=== PATIENT | male | born 1995 | race Two or more races ===

== ENCOUNTER 2024-11-17 19:53 | Inpatient (IN) | payer MEDICAID ==
[~2024-11-17] VITALS: Ht 172.7 cm; Wt 101.2 kg
[2024-11-17 21:36] LABS: GLUCOMETER DEV NAME(LOC) POC.BV; POC SARS-COV2 AG, FIA NEGATIVE (NEGATIVE)
[2024-11-17 22:30] VITALS: BP 139/93; PULSE 86; RESP 18; TEMP 98.2
[2024-11-17 22:51] LABS: GLUCOMETER DEV NAME(LOC) BV3S.2; GLUCOSE,POINT OF CARE 172 MG/DL (70-110)
[2024-11-17] MEDS: ZOLPIDEM TARTRATE 10 MG TABLET PO PRN (23:01)
[2024-11-18 08:41] VITALS: BP 127/88; PULSE 93; RESP 19; TEMP 97.7; O2SAT 97
[2024-11-18 09:12] LABS: PLATELET COUNT (AUTO) 170 K/uL (150-450); RED BLOOD CELL COUNT(AUTO) 4.76 MIL/uL (4.50-5.90); RED CELL DISTRIBUTION WIDTH 14.5 % (11.5-14.5); WHITE BLOOD COUNT (AUTO) 8.4 K/uL (4.5-11.0)
[2024-11-18] MEDS ORDERED: BACITRACIN 28 GM OINTMENT TP PRN (09:30)
[2024-11-18] MEDS ORDERED: PETROLATUM,WHITE 28 GM JELLY TP PRN (09:30)
[2024-11-18] MEDS ORDERED: MAG HYDROX/ALUMINUM HYD/SIMETH ES 30 ML SUSPENSION UDCUP PO PRN (09:30)
[2024-11-18] MEDS ORDERED: ALBUTEROL SULFATE HFA 90 MCG/PUFF 8 GM INHALER IH PRN (09:30)
[2024-11-18] MEDS ORDERED: DOCUSATE SODIUM 100 MG CAPSULE PO PRN (09:30)
[2024-11-18] MEDS ORDERED: MAGNESIUM HYDROXIDE SUSPENSION 30 ML UDCUP PO PRN (09:30)
[2024-11-18] MEDS ORDERED: ONDANSETRON 4 MG TABLET PO PRN (09:30)
[2024-11-18] MEDS ORDERED: IBUPROFEN 600 MG TABLET PO PRN (09:30)
[2024-11-18] MEDS ORDERED: OMEPRAZOLE 20 MG CAPSULE PO PRN (09:30)
[2024-11-18] MEDS ORDERED: ACETAMINOPHEN 325 MG TABLET PO PRN (09:30)
[2024-11-18] MEDS ORDERED: GLUCAGON,HUMAN RECOMBINANT 1 MG VIAL IM PRN (09:30)
[2024-11-18] MEDS ORDERED: LOPERAMIDE HCL 2 MG CAPSULE PO PRN (09:30)
[2024-11-18] MEDS ORDERED: BENZOCAINE/MENTHOL [CEPACOL] LOZENGE PO PRN (09:30)
[2024-11-18 09:42] LABS: ASPARTATE AMINOTRANSFERASE 47 U/L (15-37); CALCIUM, TOTAL 8.4 mg/dL (8.8-10.5); CHOL/HDL RATIO 5.7 (4.2-7.3); CREATININE 1.20 mg/dL (0.60-1.30); GLOMERULAR FILTR. RATE CALC > 60 mL/min (>60); GLUCOSE,RANDOM 224 mg/dL (70-110); LDL CHOL (CALC.) 132 mg/dL (0-130); SODIUM SERUM 138 mmol/L (136-145); TOTAL PROTEIN, SERUM 7.8 g/dL (6.4-8.2); UREA NITROGEN, BLOOD 23 mg/dL (7-18)
[2024-11-18] MEDS: INSULIN LISPRO 100 UNITS/ML SQ PRN (11:25)
[2024-11-18] MEDS ORDERED: SERT-440 PO (11:31)
[2024-11-18] MEDS ORDERED: LURA80TA4 PO (11:31)
[2024-11-18] MEDS ORDERED: TRAZ-257 PO (11:31)
[2024-11-18 11:35] LABS: GLUCOMETER DEV NAME(LOC) BV3S.2; GLUCOSE,POINT OF CARE 179 MG/DL (70-110)
[2024-11-18] MEDS: SERTRALINE HCL 100 MG TABLET PO SCH (12:30)
[2024-11-18] MEDS: LURASIDONE HCL 60 MG TABLET PO SCH (12:31)
[2024-11-18 20:08] VITALS: BP 121/74; PULSE 100; RESP 18; TEMP 97.4; O2SAT 97
[2024-11-18 20:30] LABS: GLUCOMETER DEV NAME(LOC) BV3S.2; GLUCOSE,POINT OF CARE 229 MG/DL (70-110)
[2024-11-19] MEDS: LURASIDONE HCL 60 MG TABLET PO SCH (06:34)
[2024-11-19 07:15] LABS: GLUCOMETER DEV NAME(LOC) BV3S.2; GLUCOSE,POINT OF CARE 175 MG/DL (70-110)
[2024-11-19 08:38] VITALS: BP 122/85; PULSE 96; RESP 18; TEMP 97.2; O2SAT 95
[2024-11-19 11:30] LABS: GLUCOMETER DEV NAME(LOC) BV3S.2; GLUCOSE,POINT OF CARE 118 MG/DL (70-110)
[2024-11-19 17:15] LABS: GLUCOMETER DEV NAME(LOC) BV3S.2; GLUCOSE,POINT OF CARE 157 MG/DL (70-110)
[2024-11-19 19:37] VITALS: BP 135/76; PULSE 90; RESP 18; TEMP 98.7; O2SAT 97
[2024-11-19 20:05] VITALS: BP 132/79; PULSE 95; RESP 18; TEMP 98.2; O2SAT 97
[2024-11-19 21:10] LABS: GLUCOMETER DEV NAME(LOC) BV3S.2; GLUCOSE,POINT OF CARE 132 MG/DL (70-110)
[2024-11-20 07:20] LABS: GLUCOMETER DEV NAME(LOC) BV3S.2; GLUCOSE,POINT OF CARE 141 MG/DL (70-110)
[2024-11-20 08:12] VITALS: BP 132/89; PULSE 99; RESP 18; TEMP 97.3; O2SAT 99
[2024-11-20 11:45] LABS: GLUCOMETER DEV NAME(LOC) BV3S.2; GLUCOSE,POINT OF CARE 94 MG/DL (70-110)
[2024-11-20 20:24] VITALS: BP 135/85; PULSE 95; RESP 17; TEMP 98.1; O2SAT 95
[2024-11-20 20:30] LABS: GLUCOMETER DEV NAME(LOC) BV3S.2; GLUCOSE,POINT OF CARE 152 MG/DL (70-110)
[2024-11-21 08:05] VITALS: BP 141/92; PULSE 100; RESP 17; TEMP 97.9; O2SAT 97
[2024-11-21 12:06] LABS: GLUCOMETER DEV NAME(LOC) BV3S.2; GLUCOSE,POINT OF CARE 143 MG/DL (70-110)
[2024-11-21 12:06] LABS: GLUCOMETER DEV NAME(LOC) BV3S.2; GLUCOSE,POINT OF CARE 158 MG/DL (70-110)
[2024-11-21] MEDS ORDERED: METF-1211 PO (12:26)
== END 2024-11-21 14:20 | disposition home or self-care (01) | DRG 761 ==
LOC: B3A 21:07
PROVIDERS: ADMIT Psychiatry & Neurology Psychiatry; ATTEND Psychiatry & Neurology Psychiatry
PROC: GZHZZZZ Group Psychotherapy (ICD-10-PCS; principal; 2024-11-18)
PROC: GZ52ZZZ Individual Psychotherapy, Cognitive (ICD-10-PCS; 2024-11-20)
DX: F25.0 Schizoaffective disorder, bipolar type (principal); E11.9 Type 2 diabetes mellitus without complications; I10 Essential (primary) hypertension; F41.9 Anxiety disorder, unspecified; Z20.822 Contact with and (suspected) exposure to COVID-19; G47.00 Insomnia, unspecified; K59.00 Constipation, unspecified; E66.9 Obesity, unspecified; F81.9 Developmental disorder of scholastic skills, unspecified; F43.10 Post-traumatic stress disorder, unspecified; Z56.0 Unemployment, unspecified; Z68.23 Body mass index [BMI] 23.0-23.9, adult; Z79.899 Other long term (current) drug therapy; Z81.8 Family history of other mental and behavioral disorders; Z91.51 Personal history of suicidal behavior
CPT/HCPCS: 80053; 80061; 82962; 83036; 84436; 84443; 85025